=== PATIENT | female | born 1940 | race Caucasian/White ===

== ENCOUNTER 2019-02-14 13:06 | Emergency (ER) | payer OTHER ==
[~2019-02-14] VITALS: Ht 152.4 cm; Wt 63.5 kg
--- NOTE | 2019-02-14 13:08 | NUR ---
PT BIBA TO BED 10.
[2019-02-14 13:09] VITALS: BP 138/59
--- NOTE | 2019-02-14 13:15 | NUR ---
78F VIOLETTE CLIFTON FROM [facility] W/ C/O MECHANICAL FALL AFTER TRYING TO GET OUT OF BED. NECK IMMOBILIZER IN PLACE FOR 2 MONTHS AGO FOR NECK SURGERY 2 MONTHS AGO. DENIES ALOC OR PAIN. DENIES NECK PAIN. PT STATES SHE FEELS WELL. NOT SPECIFIC WITH WHAT AREAS OF BODY HIT THE FLOOR. HX: QUADRAPALEGIC, GERD, SPINAL STENOSIS Addendum: 02/14/19 at 1321 by MIRIAN FLANNERY CATH IN PLACE FROM PRIOR TO ARRIVAL.
--- NOTE | 2019-02-14 13:48 | NUR ---
Dr. Cassidy evaluating patient at bedside.
--- NOTE | 2019-02-14 14:33 | NUR ---
PATIENT AWAY FOR CT SCAN.
--- NOTE | 2019-02-14 14:49 | NUR ---
PATIENT BACK FROM CT SCAN.
--- NOTE | 2019-02-14 15:34 | NUR ---
TRANSPORT PICKUP ETA 60 MINUTES.
--- NOTE | 2019-02-14 16:59 | NUR ---
PER RICHELLE FROM [place], NO NEED TO GIVE REPORT.
[2019-02-14 17:02] VITALS: BP 137/76
--- NOTE | 2019-02-14 17:02 | NUR ---
[facility] HERE TO CABLE TELEVISION ACCESS COORDINATOR PATIENT- REPORT GIVEN TO [facility] STAFF. PT IN STABLE CONDITION. VSS. WILL TRANSPORT BACK TO [facility]. DISCHARGE PAPERWORK GIVEN TO PATIENT WHO VERBALIZED UNDERSTANDING. PT UNABLE TO SIGN D/C PAPERWORK DUE TO CONDITION.
== END 2019-02-14 17:02 ==
LOC: MED 13:06
DX: S09.90XA Unspecified injury of head, initial encounter (principal); K21.9 Gastro-esophageal reflux disease without esophagitis; W19.XXXA Unspecified fall, initial encounter; Y93.89 Activity, other specified; Y92.89 Other specified places as the place of occurrence of the external cause; Y99.8 Other external cause status
CPT/HCPCS: 70450; 72125; 99284